=== PATIENT | female | born 1995 | race Caucasian/White ===

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

== ENCOUNTER 2017-04-07 21:00 | Emergency (ER) | payer BC, MEDICAID ==
[2017-04-07 21:12] VITALS: BP 127/80
--- NOTE | 2017-04-07 21:28 | EDM.PDOC ---
ED HPI GENERAL MEDICAL PROBLEM - General Chief Complaint: General Stated Complaint: Nausea and back pain, 7mos gestation Time Seen by Provider: 04/07/17 21:10 Source of Information: Reports: Patient - History of Present Illness INITIAL COMMENTS - FREE TEXT/NARRATIVE: This 21 yr female presents with low back pain and some headache and some nausea. She had been at the movie and stated pain has become worse. States she was able to eat today and is keeping fluids down. States she is feeling the baby move, she is 7 months . States she is taking her vitamins. States problems with sleep at night and sometimes will sleep in the recliner chair to help her get some rest. Her dad and boyfriend are with her. Onset: Today Location: Reports: Head, Back Improves with: Reports: Rest Worsens with: Reports: Eating Associated Symptoms: Reports: Headaches, Nausea/Vomiting Lower Back Pain Score (Numeric/FACES): 4 - Related Data Allergies Allergy/AdvReac Type Severity Reaction Status Date / Time adhesive Allergy Intermediate Rash Verified 04/07/17 21:26 coconut oil Allergy Mild Swelling Verified 04/07/17 21:26 kiwi Allergy Mild Swelling Verified 04/07/17 21:26 peanut Allergy Mild Swelling Verified 04/07/17 21:26 pineapple [Pineapple] Allergy Mild Swelling Verified 04/07/17 21:26 Sulfa (Sulfonamide Allergy Hives Verified 04/07/17 21:26 Antibiotics) Home Meds: Home Meds Loratadine/Pseudoephedrine [Claritin-D 24 Hour Tablet] 10 mg PO DAILY 09/21/16 [ History] Past Medical History HEENT History: Reports: Impaired Vision, Other (See Below) Other HEENT History: Wears glasses. Cardiovascular History: Reports: None Respiratory History: Reports: None Other Respiratory History: Takes nebs prn Gastrointestinal History: Reports: Other (See Below) Other Gastrointestinal History: Left lowe rabd. pain Other OB/BYN History: ovarian cyst Musculoskeletal History: Reports: Back Pain, Chronic Other Musculoskeletal History: knee pain Neurological History: Reports: Migraines Psychiatric History: Reports: Anxiety, Depression, Emotional Problems Oncologic (Cancer) History: Reports: None - Infectious Disease History Infectious Disease History: Reports: Chicken Pox - Past Surgical History Musculoskeletal Surgical History: Reports: Other (See Below) Social & Family History - Family History Family Medical History: Noncontributory - Tobacco Use Smoking Status *Q: Unknown Ever Smoked Years of Tobacco use: 2 Used Tobacco, but Quit: Yes Month Tobacco Last Used: october Second Hand Smoke Exposure: No - Caffeine Use Caffeine Use: Reports: Soda, Tea - Alcohol Use Days Per Week of Alcohol Use: 0 - Recreational Drug Use Recreational Drug Use: No ED ROS GENERAL - Review of Systems Review Of Systems: See Below Constitutional: Reports: No Symptoms HEENT: Reports: No Symptoms, Other (States allergies with season changes.) Respiratory: Reports: No Symptoms Cardiovascular: Reports: No Symptoms Endocrine: Reports: No Symptoms GI/Abdominal: Reports: No Symptoms : Reports: No Symptoms Musculoskeletal: Reports: Back Pain Skin: Reports: No Symptoms Neurological: Reports: No Symptoms Psychiatric: Reports: No Symptoms ED EXAM, GENERAL - Physical Exam Exam: See Below Exam Limited By: No Limitations General Appearance: Alert, WD/WN, No Apparent Distress Throat/Mouth: Normal Inspection, Normal Lips Head: Atraumatic, Normocephalic Neck: Supple, Non-Tender Respiratory/Chest: No Respiratory Distress, Lungs Clear Cardiovascular: Normal Peripheral Pulses, Regular Rate, Rhythm, Other (mild, non -pitting edema to ankles) GI/Abdominal: Non-Tender, Other (7 months ) Back Exam: Paraspinal Tenderness Extremities: Normal Inspection Neurological: Alert, Oriented Psychiatric: Normal Affect, Normal Mood Skin Exam: Warm, Dry, Normal Color Course - Vital Signs Last Recorded V/S: Last Vital Signs Temp 99.2 F 04/07/17 21:10 Pulse 105 H 04/07/17 21:10 Resp 20 04/07/17 21:10 BP 127/80 04/07/17 21:10 Pulse Ox 98 04/07/17 21:10 - Orders/Labs/Meds Labs: Laboratory Tests 04/07/17 04/07/17 04/07/17 Range/Units 21:03 21:20 21:20 WBC 12.8 H (4.0-11.0) K/uL RBC 3.71 L (3.80-5.80) M/uL Hgb 11.4 L (11.5-16.5) g/dL Hct 33.3 L (37.0-47.0) % MCV 90 (76-96) fL MCH 30.7 (27.0-32.0) pg MCHC 34.2 (31.0-35.0) g/dL RDW 14.1 (11.0-16.0) % Plt Count 164 (150-500) K/uL MPV 11.1 H (6.0-10.0) fL Neut % (Auto) 62.9 (45.0-70.0) % Lymph % (Auto) 24.9 (20.0-40.0) % [place] % (Auto) 9.9 (3.0-10.0) % Eos % (Auto) 2.1 (1.0-5.0) % Baso % (Auto) 0.2 (0.0-0.5) % Neut # (Auto) 8.02 H (2.00-7.50) K/uL Lymph # (Auto) 3.18 (1.50-4.00) K/uL [place] # (Auto) 1.26 H (0.20-0.80) K/uL Eos # (Auto) 0.27 (0.04-0.40) K/uL Baso # (Auto) 0.02 (0.02-0.10) K/uL Sodium 139 (136-145) mmol/L Potassium 3.8 (3.5-5.1) mmol/L Chloride 105 (98-107) mmol/L Carbon Dioxide 25.8 (21.0-32.0) mmol/L Anion Gap 12.0 (5.0-15.0) mmol/L BUN 10 (8-26) mg/dL Creatinine 0.52 L D (0.55-1.02) mg/dL Est Cr Clr Drug Dosing TNP Estimated GFR (MDRD) > 60 (>60) MLS/MIN BUN/Creatinine Ratio 19.2 (6-25) Glucose 106 H (74-100) mg/dL Calcium 8.8 (8.5-10.1) mg/dL Urine Color Yellow Urine Appearance Slightly cloudy (CLEAR) Urine pH 7.0 (5.0-8.0) Ur Specific [place] 1.020 (1.003-1.030) Urine Protein Negative (NEGATIVE) mg/dL Urine Glucose (UA) Negative (NEGATIVE) mg/dL Urine Ketones Negative (NEGATIVE) mg/dL Urine Occult Blood Negative (NEGATIVE) Urine Nitrite Negative (NEGATIVE) Urine Bilirubin Negative (NEGATIVE) Urine Urobilinogen 0.2 (0.2-1.0) E.U./dL Ur Leukocyte Esterase Negative (NEGATIVE) Urine RBC Not seen /HPF Urine WBC 5-10 H /HPF Ur Squamous Epith Cells Many /HPF Urine Bacteria Few /HPF - Re-Assessments/Exams Free Text/Narrative Re-Assessment/Exam: Lab for CBC, BMP and U/A completed. Leukocytosis noted and few bacteria to urine. Dale RN reports urine is cloudy and foul smelling. DXT=[id number]. Pt has appointment tomorrow with [facility]. States she wondered about taking Melatoin for sleep. States she hasn't been sleeping well. Recommend pt to check with OB /CUSTOMER SUCCESS INTERN for this. Recommend F/U in clinic if symptoms persist or worsen. 04/07/17 22:07 04/07/17 22:15 Rx for completion of Nitrofurantoin transmitted to [facility] per [employer]. 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 Reviewed with pt and her Dad. States understanding. Departure - Departure Time of Disposition: 22:15 Disposition: Home, Self-Care 01 Condition: Good Clinical Impression: UTI, Urinary tract infectious disease, UTI (urinary tract infection), Leucocytosis - Discharge Information Forms: ED Department Discharge Additional Instructions: Take Macrobid 100mg every 6hrs. Take meds given in ED, total of 6 caplets, and get prescription filled tomorrow.
== END 2017-04-07 22:14 | disposition home or self-care (01) ==
LOC: LB.ED 21:00
DX: O23.42 Unspecified infection of urinary tract in pregnancy, second trimester (principal); O99.113 Other diseases of the blood and blood-forming organs and certain disorders involving the immune mechanism complicating pregnancy, third trimester; D72.829 Elevated white blood cell count, unspecified; Z79.899 Other long term (current) drug therapy; Z88.8 Allergy status to other drugs, medicaments and biological substances; Z91.018 Allergy to other foods
CPT/HCPCS: 36415; 80048; 81001; 85025; 99283

== ENCOUNTER 2017-04-10 11:54 | Emergency (ER) | payer BC, MEDICAID ==
[2017-04-10 12:40] VITALS: BP 131/91
--- NOTE | 2017-04-10 13:44 | EDM.PDOC ---
ED HPI GENERAL MEDICAL PROBLEM - General Chief Complaint: [employer] Problem Stated Complaint: PAIN Time Seen by Provider: 04/10/17 12:40 Source of Information: Reports: Patient History Limitations: Reports: No Limitations - History of Present Illness INITIAL COMMENTS - FREE TEXT/NARRATIVE: Pt is a primigravida at 28 wks IUP approximately with SARAH BETH of 07/08/17.According to patient she was sleeping and she ahs a 31 pound pet dog, who basically jumped on her today morning. She claims that she has some abdominal cramping for a while and it resolved. Later on she went to meet her mother, and started to get abdominal cramps, she basically points all over the abdomen and which would come and go. She has not had vaginal bleeding or discharge since the injury. Has been feeling movement. She describes her pain and sharp cramps which last for few minutes. No nausea or vomiting. No dysuria or incontinence. No back pain. Abdominal Pain Score (Numeric/FACES): 8 - Related Data Allergies Allergy/AdvReac Type Severity Reaction Status Date / Time adhesive Allergy Intermediate Rash Verified 04/10/17 12:40 coconut oil Allergy Mild Swelling Verified 04/10/17 12:40 kiwi Allergy Mild Swelling Verified 04/10/17 12:40 peanut Allergy Mild Swelling Verified 04/10/17 12:40 pineapple [Pineapple] Allergy Mild Swelling Verified 04/10/17 12:40 Sulfa (Sulfonamide Allergy Hives Verified 04/10/17 12:40 Antibiotics) Home Meds: Home Meds Loratadine/Pseudoephedrine [Claritin-D 24 Hour Tablet] 10 mg PO DAILY 09/21/16 [ History] Past Medical History HEENT History: Reports: Impaired Vision, Other (See Below) Other HEENT History: Wears glasses. Cardiovascular History: Reports: None Respiratory History: Reports: None Other Respiratory History: Takes nebs prn Gastrointestinal History: Reports: Other (See Below) Other Gastrointestinal History: Left lowe rabd. pain Genitourinary History: Reports: UTI, Recurrent [employer] SECR[employer]ARY History: Reports: Other OB/BYN History: ovarian cyst Musculoskeletal History: Reports: Back Pain, Chronic Other Musculoskeletal History: knee pain Neurological History: Reports: Migraines Psychiatric History: Reports: Anxiety, Depression, Emotional Problems Oncologic (Cancer) History: Reports: None - Infectious Disease History Infectious Disease History: Reports: Chicken Pox - Past Surgical History Female Surgical History: Reports: None Musculoskeletal Surgical History: Reports: Other (See Below) Social & Family History - Family History Family Medical History: Noncontributory - Tobacco Use Smoking Status *Q: Unknown Ever Smoked Years of Tobacco use: 2 Used Tobacco, but Quit: Yes Month Tobacco Last Used: october Second Hand Smoke Exposure: No - Caffeine Use Caffeine Use: Reports: Soda, Tea - Alcohol Use Days Per Week of Alcohol Use: 0 - Recreational Drug Use Recreational Drug Use: No ED ROS GENERAL - Review of Systems Review Of Systems: See Below Constitutional: Denies: Fever, Chills, Fatigue, Night Sweats HEENT: Denies: Glasses, Hearing Loss, Throat Pain, Throat Swelling Respiratory: Denies: Shortness of Breath, Wheezing, Pleuritic Chest Pain, Cough , Sputum Cardiovascular: Denies: Chest Pain, Blood Pressure Problem GI/Abdominal: Reports: Abdominal Pain, Other. Denies: Nausea, Vomiting : Reports: Other (pelvic exam not done as pt is not having vaginal bleeding.) . Denies: Dysuria, Frequency, Urgency, Urinary Retention Musculoskeletal: Denies: Joint Pain, Joint Swelling Skin: Denies: Pruritis, Rash Neurological: Reports: Confusion, Dizziness ED EXAM, GENERAL - Physical Exam Exam: See Below Exam Limited By: No Limitations General Appearance: Alert, WD/WN, No Apparent Distress Ears: Normal External Exam, Normal Canal, Hearing Grossly Normal, Normal TMs Ear Exam: Bilateral Ear: Auricle Normal, Canal Normal, TM normal Nose: Normal Inspection, Normal Mucosa, No Blood Throat/Mouth: Normal Inspection, Normal Lips, Normal Teeth, Normal Gums, Normal Oropharynx, Normal Voice, No Airway Compromise Head: Atraumatic, Normocephalic Neck: Normal Inspection, Supple, Non-Tender, Full Range of Motion Respiratory/Chest: No Respiratory Distress, Lungs Clear, Normal Breath Sounds, No Accessory Muscle Use, Chest Non-Tender Cardiovascular: Normal Peripheral Pulses, Regular Rate, Rhythm, No Edema, No Gallop, No JVD, No Murmur, No Rub GI/Abdominal: Normal Bowel Sounds, Soft, Non-Tender, No Organomegaly, No Distention, No Abnormal Bruit, No Mass (Female) Exam: Other (Gravid uterus, Non tender to palpation and soft. heart tone sin 140-160 and reactive with good variability. No uterine contractions seen on Sylvia monitor). No: Uterine Tenderness, Vaginal Discharge Course - Vital Signs Text/Narrative:: Pt was placed on monitoring with tocometer. She has got heart tones 140-160 , with good variability on the strip. Also she has been c/o abdominal cramping, but appears very comfortable through them and last from 25 seconds to 45 seconds and are irregular. I did try to feel the contraction on the abdomen and dont feel one. Also her uterus is not hard and tender to abdominal palpations. Pt was orally hydrated. CBC is normal and her UA is WNL. I did call Dr. Roy , Pt's OBGYN and discuss finding with her. Dr. Roy does agree with oral hydration and rest. Advised to go down to [facility], if she has severe cramping pain which last for more than 2 minutes at a time and more frequent, or if she has vaginal bleeding, or nausea and vomiting, of hardening of her uterus. Other zabala rest and hydration and followup with Dr. Roy with the next scheduled appointment. Last Recorded V/S: Last Vital Signs Temp 98.4 F 04/10/17 12:15 Pulse 106 H 04/10/17 12:15 Resp 20 04/10/17 12:15 BP 131/91 H 04/10/17 12:15 Pulse Ox 100 04/10/17 12:15 - Orders/Labs/Meds Labs: Laboratory Tests 04/10/17 04/10/17 Range/Units 13:07 13:07 WBC 12.1 H (4.0-11.0) K/uL RBC 3.86 (3.80-5.80) M/uL Hgb 11.8 (11.5-16.5) g/dL Hct 34.8 L (37.0-47.0) % MCV 90 (76-96) fL MCH 30.6 (27.0-32.0) pg MCHC 33.9 (31.0-35.0) g/dL RDW 13.8 (11.0-16.0) % Plt Count 175 (150-500) K/uL MPV 11.4 H (6.0-10.0) fL Neut % (Auto) 74.4 H (45.0-70.0) % Lymph % (Auto) 17.0 L (20.0-40.0) % [place] % (Auto) 7.3 (3.0-10.0) % Eos % (Auto) 1.1 (1.0-5.0) % Baso % (Auto) 0.2 (0.0-0.5) % Neut # (Auto) 8.96 H (2.00-7.50) K/uL Lymph # (Auto) 2.05 (1.50-4.00) K/uL [place] # (Auto) 0.88 H (0.20-0.80) K/uL Eos # (Auto) 0.13 (0.04-0.40) K/uL Baso # (Auto) 0.03 (0.02-0.10) K/uL Urine Color Yellow Urine Appearance Clear (CLEAR) Urine pH 7.0 (5.0-8.0) Ur Specific [place] 1.015 (1.003-1.030) Urine Protein Negative (NEGATIVE) mg/dL Urine Glucose (UA) Negative (NEGATIVE) mg/dL Urine Ketones Negative (NEGATIVE) mg/dL Urine Occult Blood Negative (NEGATIVE) Urine Nitrite Negative (NEGATIVE) Urine Bilirubin Negative (NEGATIVE) Urine Urobilinogen 0.2 (0.2-1.0) E.U./dL Ur Leukocyte Esterase Negative (NEGATIVE) Urine RBC Not seen /HPF Urine WBC Not seen /HPF Ur Squamous Epith Cells Few /HPF Urine Bacteria Rare /HPF Departure - Departure Time of Disposition: 14:15 Disposition: Home, Self-Care 01 Condition: Good Clinical Impression: Abdominal pain affecting - Discharge Information Instructions: [place] Contractions, Abdominal Pain During Referrals: PCP,Unknown [Primary Care Provider] - Forms: ED Department Discharge Additional Instructions: Get rest and drink plenty of fluid. The child education classes should be sometime in May, if you don't receive a call in the next week, call and ask about them. - Problem List & Annotations (1) Abdominal pain affecting SNOMED Code(s): 927911388 Code(s): O26.899 - OTH RELATED CONDITIONS, UNSPECIFIED TRIMESTER; R10.9 - UNSPECIFIED ABDOMINAL PAIN Status: Acute - Problem List Review Problem List Initiated/Reviewed/Updated: Yes - Assessment/Plan Assessment:: Primigravida Early 3rd trimester, with mild abdominal trauma Plan: I did call Dr. Roy , Pt's OBGYN and discuss finding with her. Dr. Roy does agree with oral hydration and rest. Advised to go down to [facility], if she has severe cramping pain which last for more than 2 minutes at a time and more frequent, or if she has vaginal bleeding, or nausea and vomiting, of hardening of her uterus. Other zabala rest and hydration and followup with Dr. Roy with the next scheduled appointment.
== END 2017-04-10 14:15 | disposition home or self-care (01) ==
LOC: LB.ED 11:54
DX: O26.893 Other specified pregnancy related conditions, third trimester (principal); R10.9 Unspecified abdominal pain; O99.355 Diseases of the nervous system complicating the puerperium; G43.909 Migraine, unspecified, not intractable, without status migrainosus; Z3A.28 28 weeks gestation of pregnancy; Z91.018 Allergy to other foods; Z88.2 Allergy status to sulfonamides; Z91.010 Allergy to peanuts; Z91.048 Other nonmedicinal substance allergy status; Z79.899 Other long term (current) drug therapy
CPT/HCPCS: 36415; 81001; 85025; 99283

== ENCOUNTER 2017-05-03 13:45 | Emergency (ER) | payer BC, MEDICAID ==
[2017-05-03 14:08] VITALS: BP 131/79
[2017-05-03] MEDS ORDERED: Ondansetron 4 MG Tab.DIS PO ONE (14:09)
[2017-05-03] MEDS ORDERED: Sodium Chloride 0.9% 1,000 ML IV SCH (14:15)
[2017-05-03] MEDS ORDERED: Amoxicillin 500 MG Cap ONE (15:00)
[2017-05-03] MEDS ORDERED: Ondansetron 4 MG Tab.DIS ONE (15:00)
--- NOTE | 2017-05-03 15:44 | EDM.PDOC ---
ED HPI GENERAL MEDICAL PROBLEM - General Chief Complaint: General Stated Complaint: vomiting Time Seen by Provider: 05/03/17 13:55 Source of Information: Reports: Patient, Family History Limitations: Reports: No Limitations - History of Present Illness INITIAL COMMENTS - FREE TEXT/NARRATIVE: Patient is a 21 year old woman who is a female at 30 weeks gestational age who developed a URI with a lot of sinus pain and drainage which has led to a lot of nausea and vomiting today. No other pain, fever or chills. No urinary symptoms and no contractions or leakage of fluid from the vagina. Baby is active and doing well. Onset: Gradual Onset Date: 05/02/17 Duration: Day(s): (1) Location: Reports: Generalized Quality: Reports: Same as Previous Episode (Has had hyperemesis gravidarum earlier in her .) Severity: Mild Improves with: Reports: None Worsens with: Reports: None Context: Reports: Other (30 weeks ) Associated Symptoms: Reports: Nausea/Vomiting jaw and neck Pain Score (Numeric/FACES): 8 - Related Data Allergies Allergy/AdvReac Type Severity Reaction Status Date / Time adhesive Allergy Intermediate Rash Verified 04/10/17 12:40 coconut oil Allergy Mild Swelling Verified 04/10/17 12:40 kiwi Allergy Mild Swelling Verified 04/10/17 12:40 peanut Allergy Mild Swelling Verified 04/10/17 12:40 pineapple [Pineapple] Allergy Mild Swelling Verified 04/10/17 12:40 Sulfa (Sulfonamide Allergy Hives Verified 04/10/17 12:40 Antibiotics) Home Meds: Home Meds Loratadine/Pseudoephedrine [Claritin-D 24 Hour Tablet] 10 mg PO DAILY 09/21/16 [ History] Past Medical History HEENT History: Reports: Impaired Vision, Other (See Below) Other HEENT History: Wears glasses. Cardiovascular History: Reports: None Respiratory History: Reports: None Other Respiratory History: Takes nebs prn Gastrointestinal History: Reports: Other (See Below) Other Gastrointestinal History: Left lowe rabd. 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: ovarian cyst Musculoskeletal History: Reports: Back Pain, Chronic Other Musculoskeletal History: knee pain Neurological History: Reports: Migraines Psychiatric History: Reports: Anxiety, Depression, Emotional Problems Oncologic (Cancer) History: Reports: None - Infectious Disease History Infectious Disease History: Reports: Chicken Pox - Past Surgical History Female Surgical History: Reports: None Musculoskeletal Surgical History: Reports: Other (See Below) Social & Family History - Family History Family Medical History: Noncontributory - Tobacco Use Smoking Status *Q: Unknown Ever Smoked Years of Tobacco use: 2 Used Tobacco, but Quit: Yes Month Tobacco Last Used: october Second Hand Smoke Exposure: No - Caffeine Use Caffeine Use: Reports: Soda, Tea - Alcohol Use Days Per Week of Alcohol Use: 0 - Recreational Drug Use Recreational Drug Use: No ED ROS GENERAL - Review of Systems Review Of Systems: See Below Constitutional: Reports: Decreased Appetite HEENT: Reports: Sinus Problem Respiratory: Reports: No Symptoms Cardiovascular: Reports: No Symptoms Endocrine: Reports: No Symptoms GI/Abdominal: Reports: Decreased Appetite, Nausea, Vomiting : Reports: No Symptoms Musculoskeletal: Reports: No Symptoms Skin: Reports: No Symptoms Neurological: Reports: No Symptoms Psychiatric: Reports: No Symptoms Hematologic/Lymphatic: Reports: Other Immunologic: Reports: No Symptoms ED EXAM, GENERAL - Physical Exam Exam: See Below Exam Limited By: No Limitations General Appearance: Alert, WD/WN, No Apparent Distress Eye Exam: Bilateral Eye: Corneal Abrasion, Normal Fundi, Normal Inspection Ears: Normal External Exam, Normal Canal, Hearing Grossly Normal, Normal TMs Ear Exam: Bilateral Ear: Auricle Normal, Canal Normal, TM normal Nose: Nasal Drainage Throat/Mouth: Normal Inspection, Normal Lips, Normal Teeth, Normal Gums, Normal Oropharynx, Normal Voice, No Airway Compromise Head: Sinus Tenderness Neck: Normal Inspection, Supple, Non-Tender, Full Range of Motion Respiratory/Chest: No Respiratory Distress, Lungs Clear, Normal Breath Sounds, No Accessory Muscle Use, Chest Non-Tender Cardiovascular: Normal Peripheral Pulses, Regular Rate, Rhythm, No Edema, No Gallop, No JVD, No Murmur, No Rub Peripheral Pulses: 4+: Posterior Tibial (L), Posterior Tibial (R), Dorsalis Pedis (L), Dorsalis Pedis (R) GI/Abdominal: Other (Normal, nontender gravid abdomen at 30 weeks. Heart Tones at 142.) Back Exam: Normal Inspection, Full Range of Motion, NT Extremities: Normal Inspection, Normal Range of Motion, Non-Tender, Normal Capillary Refill, No Pedal Edema Neurological: Alert, Oriented, CN II-XII Intact, Normal Cognition, Normal Gait, Normal Reflexes, No Motor/Sensory Deficits Psychiatric: Normal Affect, Normal Mood Course - Vital Signs Text/Narrative:: Unremarkable ED course. She was given 4 mg of oral Zofran which quickly took away her nausea and vomiting. She was also given one liter of 0.9 normal saline and she had a great response to that. She has sinusitis causing her elevation in the WBC along with the and vomiting. She will be given Amoxicillin 500 mg po tid x 10 days and Zofran 0.4 mg po q 8 hours prn nausea. She will see her OB doctor this week and will follow closely with her. Last Recorded V/S: Last Vital Signs Temp 37.3 C 05/03/17 13:53 Pulse 110 H 05/03/17 13:53 Resp BP 131/79 05/03/17 13:53 Pulse Ox 99 05/03/17 13:53 - Orders/Labs/Meds Orders: Active Orders 24 hr Category Date Time Status Sodium Chloride 0.9% [Normal Saline] 1,000 ml Med 05/03/17 14:15 Active IV ASDIRECTED Medication Orders Sodium Chloride (Normal Saline) 1,000 mls @ 1,000 mls/hr IV ASDIRECTED JUDE Last Admin: 05/03/17 14:20 Dose: 1,000 mls/hr Labs: Laboratory Tests 05/03/17 05/03/17 05/03/17 Range/Units 14:15 14:15 14:26 WBC 15.7 H D (4.0-11.0) K/uL RBC 3.76 L (3.80-5.80) M/uL Hgb 11.5 (11.5-16.5) g/dL Hct 33.4 L (37.0-47.0) % MCV 89 (76-96) fL MCH 30.6 (27.0-32.0) pg MCHC 34.4 (31.0-35.0) g/dL RDW 13.3 (11.0-16.0) % Plt Count 156 (150-500) K/uL MPV 11.5 H (6.0-10.0) fL Neut % (Auto) 84.7 H (45.0-70.0) % Lymph % (Auto) 7.1 L (20.0-40.0) % Schley % (Auto) 6.4 (3.0-10.0) % Eos % (Auto) 1.6 (1.0-5.0) % Baso % (Auto) 0.2 (0.0-0.5) % Neut # (Auto) 13.31 H (2.00-7.50) K/uL Lymph # (Auto) 1.11 L (1.50-4.00) K/uL Schley # (Auto) 1.00 H (0.20-0.80) K/uL Eos # (Auto) 0.25 (0.04-0.40) K/uL Baso # (Auto) 0.03 (0.02-0.10) K/uL Sodium 137 (136-145) mmol/L Potassium 3.6 (3.5-5.1) mmol/L Chloride 104 (98-107) mmol/L Carbon Dioxide 22.4 (21.0-32.0) mmol/L Anion Gap 14.2 (5.0-15.0) mmol/L BUN 5 L D (8-26) mg/dL Creatinine 0.48 L (0.55-1.02) mg/dL Est Cr Clr Drug Dosing TNP Estimated GFR (MDRD) > 60 (>60) MLS/MIN BUN/Creatinine Ratio 10.4 (6-25) Glucose 93 (74-100) mg/dL Calcium 8.7 (8.5-10.1) mg/dL Total Bilirubin 1.4 H D (0.0-1.0) mg/dL AST 18 (15-37) U/L ALT 15 (12-78) U/L Alkaline Phosphatase 85 (46-116) U/L Total Protein 6.6 (6.4-8.2) g/dL Albumin 2.8 L (3.4-5.0) g/dL Globulin 3.8 (2.2-4.2) g/dL Albumin/Globulin Ratio 0.7 L (0.8-2.0) Urine Color Yellow Urine Appearance Clear (CLEAR) Urine pH 8.5 H (5.0-8.0) Ur Specific [place] 1.015 (1.003-1.030) Urine Protein Negative (NEGATIVE) mg/dL Urine Glucose (UA) Negative (NEGATIVE) mg/dL Urine Ketones 40 H (NEGATIVE) mg/dL Urine Occult Blood Negative (NEGATIVE) Urine Nitrite Negative (NEGATIVE) Urine Bilirubin Negative (NEGATIVE) Urine Urobilinogen 0.2 (0.2-1.0) E.U./dL Ur Leukocyte Esterase Negative (NEGATIVE) Urine RBC Not seen /HPF Urine WBC 0-5 H /HPF Ur Squamous Epith Cells Moderate /HPF Amorphous Sediment Moderate /HPF Urine Bacteria Few /HPF Meds: Medications Generic Name Dose Route Start Last Admin Trade Name Freq PRN Reason Stop Dose Admin Sodium Chloride 1,000 mls @ 1,000 mls/hr 05/03/17 14:15 05/03/17 14:20 Normal Saline IV 1,000 mls/hr ASDIRECTED JUDE Administration Discontinued Medications Generic Name Dose Route Start Last Admin Trade Name Freq PRN Reason Stop Dose Admin Ondansetron HCl 4 mg 05/03/17 14:09 05/03/17 14:00 Zofran Odt PO 05/03/17 14:10 4 mg ONETIME ONE Administration Departure - Departure Time of Disposition: 15:51 Disposition: Admitted As Inpatient 66 Condition: Good Clinical Impression: Sinusitis, Hyperemesis arising during - Discharge Information Instructions: Sinusitis, Adult, Dehydration, Adult, [id number] Referrals: PCP,None [Primary Care Provider] - Forms: ED Department Discharge Additional Instructions: Take the antibiotic until the mediation is completely gone and use the ondansetron as needed for nausea. To stay hydrated; take a sip of water or gatorade every 15 minutes while awake. If you have any questions during your you need to call OB in [place], if you need further assistance you can call the hospital. Make sure you are making it to your OB appointments. - My Orders Last 24 Hours: My Active Orders 05/03/17 14:15 Sodium Chloride 0.9% [Normal Saline] 1,000 ml IV ASDIRECTED - Assessment/Plan Last 24 Hours: My Active Orders 05/03/17 14:15 Sodium Chloride 0.9% [Normal Saline] 1,000 ml IV ASDIRECTED
== END 2017-05-03 15:31 | disposition critical access hospital (66) ==
LOC: LB.ED 13:45
DX: O21.0 Mild hyperemesis gravidarum (principal); O99.513 Diseases of the respiratory system complicating pregnancy, third trimester; J32.9 Chronic sinusitis, unspecified; O99.353 Diseases of the nervous system complicating pregnancy, third trimester; G43.909 Migraine, unspecified, not intractable, without status migrainosus; O99.343 Other mental disorders complicating pregnancy, third trimester; F41.9 Anxiety disorder, unspecified; F32.9 Major depressive disorder, single episode, unspecified; Z91.018 Allergy to other foods; Z91.09 Other allergy status, other than to drugs and biological substances; Z91.010 Allergy to peanuts; Z88.2 Allergy status to sulfonamides; Z87.440 Personal history of urinary (tract) infections; Z3A.30 30 weeks gestation of pregnancy
CPT/HCPCS: 36415; 80053; 81001; 85025; 96360; 99284; A9270; J7040

== ENCOUNTER 2017-05-26 15:26 | Emergency (ER) | payer BC, MEDICAID ==
--- NOTE | 2017-05-26 15:56 | EDM.PDOC ---
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 She claims that she has bee having sore throat since yesterday. hurt to swallow. No fever or chills. No runny nose or cold symptoms. No cough. Claims she feels weak. She can feel the baby move. Complains of pain in her lower abdomen on and off. She claims that her legs are swollen and her blood pressure is up. No confusion. , no epigastric pain. no nausea or vomiting. no tremors or headache. Onset Date: 05/25/17 Severity: Mild Throat Pain Score (Numeric/FACES): 9 - Related Data Allergies Allergy/AdvReac Type Severity Reaction Status Date / Time adhesive Allergy Intermediate Rash Verified 04/10/17 12:40 coconut oil Allergy Mild Swelling Verified 04/10/17 12:40 kiwi Allergy Mild Swelling Verified 04/10/17 12:40 peanut Allergy Mild Swelling Verified 04/10/17 12:40 pineapple [Pineapple] Allergy Mild Swelling Verified 04/10/17 12:40 Sulfa (Sulfonamide Allergy Hives Verified 04/10/17 12:40 Antibiotics) Home Meds: Home Meds Loratadine/Pseudoephedrine [Claritin-D 24 Hour Tablet] 10 mg PO DAILY 09/21/16 [ History] Past Medical History HEENT History: Reports: Impaired Vision, Other (See Below) Other HEENT History: Wears glasses. Cardiovascular History: Reports: None Respiratory History: Reports: None Other Respiratory History: Takes nebs prn Gastrointestinal History: Reports: Other (See Below) Other Gastrointestinal History: Left lowe rabd. 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 OB/BYN History: ovarian cyst Musculoskeletal History: Reports: Back Pain, Chronic Other Musculoskeletal History: knee pain Neurological History: Reports: Migraines Psychiatric History: Reports: Anxiety, Depression, Emotional Problems Oncologic (Cancer) History: Reports: None - Infectious Disease History Infectious Disease History: Reports: Chicken Pox - Past Surgical History Female Surgical History: Reports: None Musculoskeletal Surgical History: Reports: Other (See Below) Social & Family History - Family History Family Medical History: Noncontributory - Tobacco Use Smoking Status *Q: Unknown Ever Smoked Years of Tobacco use: 2 Used Tobacco, but Quit: Yes Month Tobacco Last Used: october Second Hand Smoke Exposure: No - Caffeine Use Caffeine Use: Reports: Soda, Tea - Alcohol Use Days Per Week of Alcohol Use: 0 - Recreational Drug Use Recreational Drug Use: No ED ROS GENERAL - Review of Systems Review Of Systems: See Below Constitutional: Denies: Fever, Chills, Night Sweats, Diaphoresis HEENT: Reports: Throat Pain. Denies: Rhinitis, Sinus Problem, Throat Swelling Respiratory: Denies: Cough, Sputum Cardiovascular: Denies: Chest Pain, Lightheadedness GI/Abdominal: Reports: Abdominal Pain, Flatus. Denies: Constipation, Diarrhea, Nausea, Vomiting : Denies: Dysuria, Flank Pain, Frequency Musculoskeletal: Denies: Joint Pain, Joint Swelling Skin: Denies: Bruising, Pruritis, Rash Neurological: Denies: Confusion, Dizziness, Headache, Numbness, Tingling, Tremors ED EXAM, GENERAL - Physical Exam Exam: See Below Exam Limited By: No Limitations General Appearance: Alert, WD/WN, No Apparent Distress Eye Exam: Bilateral Eye: EOMI, Proptosis Ears: Normal External Exam, Normal Canal, Hearing Grossly Normal, Normal TMs Ear Exam: Bilateral Ear: Auricle Normal, Canal Normal, TM normal Nose: Normal Inspection, Normal Mucosa, No Blood Throat/Mouth: Normal Inspection, Normal Lips, Normal Teeth, Normal Gums, Normal Oropharynx, Normal Voice, No Airway Compromise, Other (I do not see any congestion or erythema of the posterior pharynx) Head: Atraumatic, Normocephalic Neck: Normal Inspection, Supple, Non-Tender, Full Range of Motion Respiratory/Chest: No Respiratory Distress, Lungs Clear, Normal Breath Sounds, No Accessory Muscle Use, Chest Non-Tender Cardiovascular: Normal Peripheral Pulses, Regular Rate, Rhythm, No Edema, No Gallop, No JVD, No Murmur, No Rub GI/Abdominal: Normal Bowel Sounds, Soft, Non-Tender, No Organomegaly, No Distention, No Mass, Pelvis Stable, Other (Gravid uterus palpatble. Non tender. FHT in 140s and reactive , heard in the rigth lower quadrant.) Course - Vital Signs Text/Narrative:: Pt appears well hydrated, her tongue is moist. I do not see any swelling in her ankle or legs today. heart tones are reactive and reassuring. Her strep test is negative. Probably has viral pharyngitis. Advised salt water gargles 2-3 times. CBC, CMP and UA appear normal. Reassured that her initial Blood pressure was 146 /76mmhg. We did repeat the Blood pressure was 125/72mmhg after resting. Pt reassured that her blood pressure is stable and all her lab work appears normal. Advised to followup with Dr. Roy with her appointment next thursday. If she develops severe headache, nausea , vomiting, intractable abdominal pain, tremors should return to emergency room HEATH. Advised to monitor movements. Last Recorded V/S: Last Vital Signs Temp 98.3 F 05/26/17 15:46 Pulse 100 05/26/17 16:40 Resp 16 05/26/17 15:46 BP 125/70 05/26/17 16:40 Pulse Ox 98 05/26/17 16:40 - Orders/Labs/Meds Orders: Active Orders 24 hr Category Date Time Status CULTURE STREP A CONFIRMATION [RM] Stat Lab 05/26/17 16:00 Results STREP SCRN A RAPID W CULT CONF [RM] Stat Lab 05/26/17 15:51 Uncollected Labs: Laboratory Tests 05/26/17 05/26/17 05/26/17 Range/Units 14:00 16:00 16:00 WBC 12.3 H D (4.0-11.0) K/uL RBC 3.88 (3.80-5.80) M/uL Hgb 11.4 L (11.5-16.5) g/dL Hct 33.3 L (37.0-47.0) % MCV 86 (76-96) fL MCH 29.4 (27.0-32.0) pg MCHC 34.2 (31.0-35.0) g/dL RDW 13.0 (11.0-16.0) % Plt Count 180 (150-500) K/uL MPV 11.5 H (6.0-10.0) fL Neut % (Auto) 70.3 H (45.0-70.0) % Lymph % (Auto) 17.6 L (20.0-40.0) % [place] % (Auto) 8.6 (3.0-10.0) % Eos % (Auto) 3.2 (1.0-5.0) % Baso % (Auto) 0.3 (0.0-0.5) % Neut # (Auto) 8.64 H (2.00-7.50) K/uL Lymph # (Auto) 2.17 (1.50-4.00) K/uL [place] # (Auto) 1.06 H (0.20-0.80) K/uL Eos # (Auto) 0.40 (0.04-0.40) K/uL Baso # (Auto) 0.04 (0.02-0.10) K/uL Sodium 139 (136-145) mmol/L Potassium 3.7 (3.5-5.1) mmol/L Chloride 106 (98-107) mmol/L Carbon Dioxide 22.0 (21.0-32.0) mmol/L Anion Gap 14.7 (5.0-15.0) mmol/L BUN 7 L D (8-26) mg/dL Creatinine 0.57 (0.55-1.02) mg/dL Est Cr Clr Drug Dosing 148.61 mL/min Estimated GFR (MDRD) > 60 (>60) MLS/MIN BUN/Creatinine Ratio 12.3 (6-25) Glucose 94 (74-100) mg/dL Calcium 8.7 (8.5-10.1) mg/dL Total Bilirubin 0.6 D (0.0-1.0) mg/dL AST 14 L (15-37) U/L ALT 12 (12-78) U/L Alkaline Phosphatase 109 (46-116) U/L Total Protein 6.3 L (6.4-8.2) g/dL Albumin 2.6 L (3.4-5.0) g/dL Globulin 3.7 (2.2-4.2) g/dL Albumin/Globulin Ratio 0.7 L (0.8-2.0) Urine Color Yellow Urine Appearance Clear (CLEAR) Urine pH 7.5 (5.0-8.0) Ur Specific [place] 1.020 (1.003-1.030) Urine Protein Negative (NEGATIVE) mg/dL Urine Glucose (UA) Negative (NEGATIVE) mg/dL Urine Ketones 15 H (NEGATIVE) mg/dL Urine Occult Blood Negative (NEGATIVE) Urine Nitrite Negative (NEGATIVE) Urine Bilirubin Negative (NEGATIVE) Urine Urobilinogen 1.0 (0.2-1.0) E.U./dL Ur Leukocyte Esterase Small H (NEGATIVE) Urine RBC Not seen /HPF Urine WBC 0-5 H /HPF Ur Squamous Epith Cells Moderate /HPF Urine Bacteria Rare /HPF Departure - Departure Time of Disposition: 16:45 Disposition: Home, Self-Care 01 Condition: Fair Clinical Impression: Viral pharyngitis, Abdominal pain in - Discharge Information Referrals: PCP,None [Primary Care Provider] - Forms: ED Department Discharge Additional Instructions: Pt appears well hydrated, her tongue is moist. I do not see any swelling in her ankle or legs today. heart tones are reactive and reassuring. Her strep test is negative. Probably has viral pharyngitis. Advised salt water gargles 2-3 times. CBC, CMP and UA appear normal. Reassured that her initial Blood pressure was 146 /76mmhg. We did repeat the Blood pressure was 125/72mmhg after resting. Pt reassured that her blood pressure is stable and all her lab work appears normal. Advised to followup with Dr. Roy with her appointment next thursday. If she develops severe headache, nausea , vomiting, intractable abdominal pain, tremors should return to emergency room HEATH. Advised to monitor movements. - Problem List & Annotations (1) Viral pharyngitis SNOMED Code(s): 1592860 Code(s): J02.9 - ACUTE PHARYNGITIS, UNSPECIFIED Status: Acute Current Visit: Yes (2) Abdominal pain in SNOMED Code(s): 911706484 Code(s): O26.899 - OTH RELATED CONDITIONS, UNSPECIFIED TRIMESTER; R10.9 - UNSPECIFIED ABDOMINAL PAIN Status: Acute Current Visit: Yes - Problem List Review Problem List Initiated/Reviewed/Updated: Yes - My Orders Last 24 Hours: My Active Orders 05/26/17 15:51 STREP SCRN A RAPID W CULT CONF [RM] Stat 05/26/17 16:00 CULTURE STREP A CONFIRMATION [RM] Stat - Assessment/Plan Last 24 Hours: My Active Orders 05/26/17 15:51 STREP SCRN A RAPID W CULT CONF [RM] Stat 05/26/17 16:00 CULTURE STREP A CONFIRMATION [RM] Stat Assessment:: Viral Pharyngitis Abdominal pain in Plan: Pt appears well hydrated, her tongue is moist. I do not see any swelling in her ankle or legs today. heart tones are reactive and reassuring. Her strep test is negative. CBC, CMP and UA appear normal. Reassured that her initial Blood pressure was 146 /76mmhg. We did repeat the Blood pressure after 20 minutes resting. Pt reassured that her blood pressure is stable and all her lab work appears normal. Advised to followup with Dr. Roy with her appointment next thursday. If she develops severe headache, nausea , vomiting, intractable abdominal pain, tremors should return to emergency room HEATH. Advised to monitor movements.
[2017-05-26 16:41] VITALS: BP 125/70
== END 2017-05-26 16:45 | disposition home or self-care (01) ==
LOC: LB.ED 15:26
DX: O99.89 Other specified diseases and conditions complicating pregnancy, childbirth and the puerperium (principal); J02.9 Acute pharyngitis, unspecified; R10.31 Right lower quadrant pain; Z88.2 Allergy status to sulfonamides; Z88.8 Allergy status to other drugs, medicaments and biological substances; Z91.018 Allergy to other foods
CPT/HCPCS: 36415; 80053; 81001; 85025; 87081; 87430; 99283; 99284

== ENCOUNTER 2017-07-04 10:08 | Emergency (ER) | payer BC, MEDICAID ==
[2017-07-04] MEDS ORDERED: Ondansetron 4 MG Tab.DIS PO ONE ×2 (10:23→10:27)
[2017-07-04] MEDS ORDERED: Ketorolac 60 MG/2 ML SDV IM ONE (10:28)
[2017-07-04] MEDS ORDERED: Ondansetron 4 MG Tab.DIS ONE ×2 (10:29→10:45)
[2017-07-04] MEDS ORDERED: Ketorolac 60 MG/2 ML SDV ONE (10:34)
[2017-07-04 10:50] VITALS: BP 125/67
--- NOTE | 2017-07-04 15:39 | ER ---
HISTORY OF PRESENT ILLNESS: A 21-year-old girl here with I believe her father with complaints of lower abdominal pain that has been ongoing for the last couple of days. She also feels nauseated. She has not been vomiting. She has not had any recent falls or injuries. The patient did have a vaginal delivery on 06/26/2017. She did have a lot of abdominal pain throughout her as well, but she states this feels a little different. She has not had any vaginal bleeding the last few days. She is on over-the- counter iron supplement because her hemoglobin was a little low. The patient states she feels a little dizzy at times, but not significantly. OBJECTIVE: GENERAL APPEARANCE: The patient is awake and alert. VITAL SIGNS: Reviewed. She is afebrile. Blood pressure 125/67. LUNGS: Clear. There is no CVA tenderness with percussion. ABDOMEN: Soft. There is mild discomfort in the lower abdomen midline area over the bladder uterus area. There is no guarding with palpation. Bowel sounds are present and active. SKIN: Warm and dry. LABORATORY DATA: Labs today include a CBC, which has a normal white count, hemoglobin of 10.3. CMP is unremarkable and UA is normal. The patient was given Zofran 4 mg sublingual and Toradol 60 mg IM. These medications resolved her symptoms, while waiting for the lab results. DIAGNOSIS: Lower abdominal pain, post delivery without any current bleeding. TREATMENT PLAN: I advised patient to continue with activity as tolerated. Ibuprofen or Motrin should be used as needed for discomfort and she is to increase her liquid intake. Followup should be with her primary care provider next week as needed. NIRALI/MODPrecious /[id number]
== END 2017-07-04 11:25 | disposition home or self-care (01) ==
LOC: LB.ED 10:08
DX: O90.89 Other complications of the puerperium, not elsewhere classified (principal); R10.30 Lower abdominal pain, unspecified
CPT/HCPCS: 36415; 80053; 81001; 85025; 96372; 99284; A9270; J1885

== ENCOUNTER 2017-12-15 14:46 | Emergency (ER) | payer BC, MEDICAID ==
[2017-12-15] MEDS ORDERED: HYDROmorphone 2 MG/ML Syringe SUBCUT ONE (15:00)
[2017-12-15] MEDS ORDERED: HYDROmorphone 4 MG/ML Syringe ONE (15:02)
[2017-12-15] MEDS ORDERED: Enoxaparin 60 MG/0.6 ML Syringe ONE ×2 (15:10→16:18)
[2017-12-15 15:25] VITALS: BP 140/70
[2017-12-15] MEDS ORDERED: Enoxaparin 60 MG/0.6 ML Syringe SUBCUT ONE (16:21)
--- NOTE | 2017-12-15 20:32 | ER ---
DATE OF SERVICE: 12/15/2017 HPI: A 22-year-old female here with complaints of pain involving the left knee area. The patient states that it has been getting worse over the last hour and a half for so. She underwent surgery to repair a femoropatellar ligament last , this was done at [facility]. She states that she has been on a regional nerve block as well as pain medications and the nerve block has wore off. She has been taking oxycodone as well as Toradol she tells me for pain. Her last dose of these medications was at 10 o' clock this morning, which mean she would be due for her next dose. The patient states that the pain got to the point where she could not bear it. She rates at least at an 8/10. The patient is concerned about her blood clot. She had the same procedure done on her other leg previously and did develop a blood clot that needed to be treated. OBJECTIVE: GENERAL APPEARANCE: The patient is awake and alert. She is uncomfortable. VITAL SIGNS: Reviewed. She is running a low-grade temp of 99.6, blood pressure is good. Pulse is 115. Physical exam, examining the left leg reveals there is a dressing in place. This was removed by myself and nursing staff revealing mild swelling of the injury site. There are multiple small incisions from the surgery. There is no active drainage. She does have a pressure blister on the medial side of the knee that is about 2 cm in diameter. The entire knee and posterior aspect of the knee going down into the proximal calf muscle is tender and painful. Homans sign is positive. LAB AND X-RAY STUDIES: Labs include her CBC which is normal. PT/INR normal. D -dimer is elevated. Comprehensive metabolic panel is unremarkable. D-dimer is 1080. The patient was also given Dilaudid 2 mg subcu, which brought her pain down to a 5/10, and she was now comfortable and has been texting different people. DIAGNOSIS: Postop pain involving the left knee and lower leg with concern about possible deep vein thrombosis. TREATMENT PLAN: The patient will be scheduled for an ultrasound tomorrow. We will cover her with Lovenox. She will get 60 mg here in the emergency room, and I will give her script for 80 mg to take in 12 hours. Nursing staff will reapply the dressing. The patient is to go home and keep her leg elevated and follow up for the ultrasound as scheduled tomorrow. She has also resumed taking her pain medications as directed by the surgeon. NIRALI/CESAR /[id number] MTDD
== END 2017-12-15 16:27 | disposition home or self-care (01) ==
LOC: LB.ED 14:46
DX: G89.18 Other acute postprocedural pain (principal); Z98.890 Other specified postprocedural states; M25.562 Pain in left knee
CPT/HCPCS: 36415; 80053; 85025; 85379; 85610; 96372; 99283-25; J1170; J1650

== ENCOUNTER 2018-04-04 19:35 | Emergency (ER) | payer OTHER, BC, MEDICAID ==
[2018-04-04] MEDS ORDERED: Diphtheria,Pertussis(Acell),Tetanus Vaccine 0.5 ML SDV inactive IM ONE (19:40)
--- NOTE | 2018-04-04 21:31 | ER ---
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 The patient was told she needed to come in and get it checked out since it was done at work. ALLERGIES: SULFA. CURRENT MEDICATIONS: Fluoxetine 80 mg p.o. daily and Augmentin for an ear infection. PHYSICAL EXAMINATION: GENERAL: The patient is alert, oriented, no apparent distress. VITAL SIGNS: Pulse is 103, blood pressure is 146/93, respirations 20, O2 saturation is 99%. The patient is afebrile. Assesment: laceration She has a small superficial about 4 cm scratch on the palmar surface of the left hand. It does not even penetrate the dermis. There is no reason to suture it. Antibiotic ointment and a dressing were applied. The patient was given a Tdap. The patient to return to clinic for any signs of infection. DANILO/CESAR /[id number] MTDMercedes
[2018-04-04 21:51] VITALS: BP 146/93
== END 2018-04-04 19:55 | disposition home or self-care (01) ==
LOC: LB.ED 19:35
DX: S61.412A Laceration without foreign body of left hand, initial encounter (principal); Z23 Encounter for immunization; W26.8XXA Contact with other sharp object(s), not elsewhere classified, initial encounter; Y93.G1 Activity, food preparation and clean up; Z88.2 Allergy status to sulfonamides
CPT/HCPCS: 90471; 90715; 99283-25

== ENCOUNTER 2018-10-04 12:34 | Emergency (ER) | payer BC, MEDICAID ==
--- NOTE | 2018-10-04 12:44 | EDM.PDOC ---
ED HPI GENERAL MEDICAL PROBLEM - General Stated Complaint: ABD PAIN Time Seen by Provider: 10/04/18 12:40 Source of Information: Reports: Patient History Limitations: Reports: No Limitations - History of Present Illness INITIAL COMMENTS - FREE TEXT/NARRATIVE: This is a 23yo F here for left lower abdominal pain that has been present for months but states it is worse today. She states the pain just started getting worse and has fluctuated in the past. Denies fever or chills. Patient states the pain is intolerable. Onset: Sudden Duration: Hour(s):, Getting Worse Location: Reports: Abdomen Quality: Reports: Ache Severity: Severe Improves with: Reports: None Worsens with: Reports: None Associated Symptoms: Reports: No Other Symptoms Left Lower Flank Pain Score (Numeric/FACES): 8 - Related Data Allergies Allergy/AdvReac Type Severity Reaction Status Date / Time adhesive Allergy Intermediate Rash Verified 04/04/18 21:43 coconut oil Allergy Mild Swelling Verified 04/04/18 21:43 kiwi Allergy Mild Swelling Verified 04/04/18 21:43 peanut Allergy Mild Swelling Verified 04/04/18 21:43 pineapple [Pineapple] Allergy Mild Swelling Verified 04/04/18 21:43 Sulfa (Sulfonamide Allergy Hives Verified 04/04/18 21:43 Antibiotics) Home Meds: Home Meds Amoxicillin/Potassium Clav [Augmentin 875-125 Tablet] 1 each PO BID 04/04/18 [ History] FLUoxetine HCl [Fluoxetine HCl] 1 cap PO DAILY 04/04/18 [History] Past Medical History HEENT History: Reports: Impaired Vision, Other (See Below) Other HEENT History: Wears glasses. Cardiovascular History: Reports: None Respiratory History: Reports: None Other Respiratory History: Takes nebs prn Gastrointestinal History: Reports: Other (See Below) Other Gastrointestinal History: Left lowe rabd. pain Genitourinary History: Reports: UTI, Recurrent CLIN NURSE History: Reports: , Other (See Below) Other CLIN NURSE History: ovarian cyst. G1;P1 Musculoskeletal History: Reports: Back Pain, Chronic Other Musculoskeletal History: knee pain Neurological History: Reports: Migraines Psychiatric History: Reports: Anxiety, Depression, Emotional Problems Oncologic (Cancer) History: Reports: None - Infectious Disease History Infectious Disease History: Reports: Chicken Pox - Past Surgical History Female Surgical History: Reports: None Musculoskeletal Surgical History: Reports: Other (See Below) Social & Family History - Family History Family Medical History: Noncontributory - Caffeine Use Caffeine Use: Reports: Energy Drinks, Soda ED ROS GENERAL - Review of Systems Review Of Systems: ROS reveals no pertinent complaints other than HPI. ED EXAM, GI/ABD - Physical Exam Exam: See Below Exam Limited By: No Limitations General Appearance: Alert, WD/WN, Moderate Distress Eyes: Bilateral: EOMI Ears: Normal External Exam Nose: Normal Inspection Throat/Mouth: Normal Inspection Head: Atraumatic, Normocephalic Neck: Normal Inspection Respiratory/Chest: No Respiratory Distress, Lungs Clear, Normal Breath Sounds Cardiovascular: Normal Peripheral Pulses, Regular Rate, Rhythm GI/Abdominal Exam: Tender (left lower abdomen) Back Exam: Normal Inspection Course - Vital Signs Last Recorded V/S: Last Vital Signs Temp 37.5 C 10/04/18 14:39 Pulse 76 10/04/18 14:39 Resp 20 10/04/18 14:39 BP 110/58 L 10/04/18 14:39 Pulse Ox 98 10/04/18 14:39 - Orders/Labs/Meds Labs: Laboratory Tests 10/04/18 10/04/18 10/04/18 Range/Units 12:50 12:50 12:50 WBC 6.1 (4.0-11.0) K/uL RBC 4.82 (3.80-5.80) M/uL Hgb 13.9 (11.5-16.5) g/dL Hct 41.1 (37.0-47.0) % MCV 85 (76-96) fL MCH 28.8 (27.0-32.0) pg MCHC 33.8 (31.0-35.0) g/dL RDW 14.6 (11.0-16.0) % Plt Count 176 (150-500) K/uL MPV 11.7 H (6.0-10.0) fL Neut % (Auto) 54.2 (45.0-70.0) % Lymph % (Auto) 30.2 (20.0-40.0) % [place] % (Auto) 10.3 H (3.0-10.0) % Eos % (Auto) 4.8 (1.0-5.0) % Baso % (Auto) 0.5 (0.0-0.5) % Neut # (Auto) 3.31 (2.00-7.50) K/uL Lymph # (Auto) 1.84 (1.50-4.00) K/uL [place] # (Auto) 0.63 (0.20-0.80) K/uL Eos # (Auto) 0.29 (0.04-0.40) K/uL Baso # (Auto) 0.03 (0.02-0.10) K/uL Sodium 144 (136-145) mmol/L Potassium 4.3 (3.5-5.1) mmol/L Chloride 106 (98-107) mmol/L Carbon Dioxide 26.1 (21.0-32.0) mmol/L Anion Gap 16.2 H (5.0-15.0) mmol/L BUN 10 D (8-26) mg/dL Creatinine 1.33 H D (0.55-1.02) mg/dL Est Cr Clr Drug Dosing TNP Estimated GFR (MDRD) 50 L (>60) MLS/MIN BUN/Creatinine Ratio 7.5 (6-25) Glucose 90 (74-100) mg/dL Lactic Acid 1.44 (0.90-1.70) mmol/L Calcium 9.0 (8.5-10.1) mg/dL Total Bilirubin 1.6 H (0.0-1.0) mg/dL AST 14 L (15-37) U/L ALT 22 (12-78) U/L Alkaline Phosphatase 62 (46-116) U/L Total Protein 7.3 (6.4-8.2) g/dL Albumin 3.7 (3.4-5.0) g/dL Globulin 3.6 (2.2-4.2) g/dL Albumin/Globulin Ratio 1.0 (0.8-2.0) Lipase (73-393) U/L 10/04/18 Range/Units 12:50 WBC (4.0-11.0) K/uL RBC (3.80-5.80) M/uL Hgb (11.5-16.5) g/dL Hct (37.0-47.0) % MCV (76-96) fL MCH (27.0-32.0) pg MCHC (31.0-35.0) g/dL RDW (11.0-16.0) % Plt Count (150-500) K/uL MPV (6.0-10.0) fL Neut % (Auto) (45.0-70.0) % Lymph % (Auto) (20.0-40.0) % [place] % (Auto) (3.0-10.0) % Eos % (Auto) (1.0-5.0) % Baso % (Auto) (0.0-0.5) % Neut # (Auto) (2.00-7.50) K/uL Lymph # (Auto) (1.50-4.00) K/uL [place] # (Auto) (0.20-0.80) K/uL Eos # (Auto) (0.04-0.40) K/uL Baso # (Auto) (0.02-0.10) K/uL Sodium (136-145) mmol/L Potassium (3.5-5.1) mmol/L Chloride (98-107) mmol/L Carbon Dioxide (21.0-32.0) mmol/L Anion Gap (5.0-15.0) mmol/L BUN (8-26) mg/dL Creatinine (0.55-1.02) mg/dL Est Cr Clr Drug Dosing Estimated GFR (MDRD) (>60) MLS/MIN BUN/Creatinine Ratio (6-25) Glucose (74-100) mg/dL Lactic Acid (0.90-1.70) mmol/L Calcium (8.5-10.1) mg/dL Total Bilirubin (0.0-1.0) mg/dL AST (15-37) U/L ALT (12-78) U/L Alkaline Phosphatase (46-116) U/L Total Protein (6.4-8.2) g/dL Albumin (3.4-5.0) g/dL Globulin (2.2-4.2) g/dL Albumin/Globulin Ratio (0.8-2.0) Lipase 121 (73-393) U/L Meds: Medications Discontinued Medications Generic Name Dose Route Start Last Admin Trade Name Freq PRN Reason Stop Dose Admin Hydrocodone Bitart/Acetaminophen 1 tab 10/04/18 13:27 10/04/18 13:31 [place] 325-10 Mg PO 10/04/18 13:28 1 tab ONETIME ONE Administration Hydrocodone Bitart/Acetaminophen Confirm 10/04/18 13:37 10/04/18 13:44 [place] 325-10 Mg Administered 10/04/18 13:38 Not Given Dose 1 tab .ROUTE .STK-MED ONE Morphine Sulfate 2 mg 10/04/18 14:24 10/04/18 14:29 Morphine IVPUSH 10/04/18 14:25 2 mg ONETIME ONE Administration Morphine Sulfate Confirm 10/04/18 14:34 10/04/18 14:32 Morphine Administered 10/04/18 14:35 Not Given Dose 2 mg .ROUTE .STK-MED ONE Morphine Sulfate Confirm 10/04/18 14:57 10/04/18 14:55 Morphine Administered 10/04/18 14:58 Not Given Dose 2 mg .ROUTE .STK-MED ONE Morphine Sulfate 2 mg 10/04/18 14:53 10/04/18 14:55 Morphine IVPUSH 10/04/18 14:54 2 mg ONETIME ONE Administration Ondansetron HCl Confirm 10/04/18 14:58 10/04/18 14:55 Zofran Administered 10/04/18 14:59 Not Given Dose 4 mg .ROUTE .STK-MED ONE Ondansetron HCl 4 mg 10/04/18 14:54 10/04/18 15:02 Zofran IVPUSH 10/04/18 14:55 4 mg ONETIME ONE Administration Departure - Departure Time of Disposition: 15:30 Disposition: Home, Self-Care 01 Condition: Good Clinical Impression: Lower abdominal pain Constipation Qualifiers: Constipation type: unspecified constipation type Qualified Code(s): K59.00 - Constipation, unspecified - Discharge Information Instructions: Ibuprofen tablets and capsules, Acetaminophen tablets or caplets Referrals: PCP,None [Primary Care Provider] - Forms: ED Department Discharge Additional Instructions: Take metamucil and/or a stool softner, the CT does show some constipation. Take the Tramadol only if needed for pain that is not covered tylenol and ibuprofen. Return to the clinic as needed. - Problem List & Annotations (1) Abdominal pain, lower SNOMED Code(s): 44568546 Code(s): R10.30 - LOWER ABDOMINAL PAIN, UNSPECIFIED Status: Acute Priority: High Current Visit: Yes Onset Date: ~12/02/17 Annotation/Comment :: 07/04/17 - Lower abdominal pain, post delivery without any current bleeding. (2) Constipation SNOMED Code(s): 42373322 Code(s): K59.00 - CONSTIPATION, UNSPECIFIED Status: Acute Priority: High Current Visit: Yes Qualifiers: Constipation type: unspecified constipation type Qualified Code(s): K59.00 - Constipation, unspecified - Problem List Review Problem List Initiated/Reviewed/Updated: Yes - Assessment/Plan Plan: Counseled on CT findings including renal findings. Discussed follow up and discussed constipation and management. Discussed further pain control with tramadol as needed only temporarily and f/u in ER or clinic if symptoms persist or worsen. Continue conservative management and supportive care.
[2018-10-04] MEDS ORDERED: Acetaminophen/HYDROcodone 325-10 MG Tab PO ONE (13:27)
[2018-10-04] MEDS ORDERED: Acetaminophen/HYDROcodone 325-10 MG Tab ONE (13:37)
[2018-10-04] MEDS ORDERED: Morphine 2 MG/ML Syringe IVPUSH ONE ×2 (14:24→14:53)
--- NOTE | 2018-10-04 14:24 | CT ---
DATE OF SERVICE: 10/04/18 CLINICAL DATA: Left lower abd pain. UNENHANCED ABDOMEN AND PELVIC CT: Multislice acquisition through the abdomen and pelvis without IV or oral contrast was performed. Comparison is made to a prior exam dated 10/07/17. There are mild atelectatic changes of the dependent portions of both lower lungs. The lung base is otherwise clear. The unenhanced liver appears normal. The gallbladder appears normal. The spleen appears normal. The pancreas appears normal. The right and left adrenals appear normal. The right and left kidneys appear normal. No nephrocalcinosis or nephrolithiasis. No hydronephrosis or hydroureter. The bladder is fluid filled and mildly distended. It is otherwise normal in appearance. The appendix is not visualized. No evidence of appendicitis. There is a moderate amount of gas and stool present throughout the colon. There are small low density foci in the right ovary consistent with ovarian cyst. No free air. No free fluid. No dilated loops of bowel. No adenopathy. No aortic aneurysm. There is an umbilical hernia containing fat. [id number] [facility]
[2018-10-04] MEDS ORDERED: Morphine 2 MG/ML Syringe ONE ×2 (14:34→14:57)
[2018-10-04 14:40] VITALS: BP 110/58
[2018-10-04] MEDS ORDERED: Ondansetron 4 MG/2 ML SDV IVPUSH ONE (14:54)
[2018-10-04] MEDS ORDERED: Ondansetron 4 MG/2 ML SDV ONE (14:58)
== END 2018-10-04 15:35 | disposition home or self-care (01) ==
LOC: LB.ED 12:34
DX: K59.00 Constipation, unspecified (principal); Z88.8 Allergy status to other drugs, medicaments and biological substances; Z79.899 Other long term (current) drug therapy
CPT/HCPCS: 36415; 74176; 80053; 83605; 83690; 85025; 96374; 96375; 99284; A9270; J2270; J2405

== ENCOUNTER 2019-01-12 22:09 | Emergency (ER) | payer BC, MEDICAID ==
--- NOTE | 2019-01-12 23:08 | EDM.PDOC ---
ED HPI GENERAL MEDICAL PROBLEM - General Chief Complaint: Headache Stated Complaint: LETHARGIC/HEADACHE Time Seen by Provider: 01/12/19 22:30 Source of Information: Reports: Patient History Limitations: Reports: No Limitations - History of Present Illness INITIAL COMMENTS - FREE TEXT/NARRATIVE: According to patient she has had severe headache on the right side of the head since today morning, the headache has gradually got worse through the day. Rates her headache at 9/10 in severity. Has been nauseous all day. Today afternoon when patient went to work, she claims she had transient episode of tunnel vision in both eyes and following which she passed out. Her co-worker prevented her from falling and hurting and let her lye down on the ground . Pt claims she had passed out for few minutes. Her syncope was not asso with incontinence of urine or stool. She claims her headache has got worse through the night and hence here. No fever or chills. No vomiting in the ER. Her vitals are stable in the emergency room. Pt has history of migraine and she get Botox injections, her last injection was about a month ago. No weakness, no tingling or numbness in her extremities. Onset: Today Onset Date: 01/12/19 Duration: Getting Worse Location: Reports: Head Quality: Reports: Ache Severity: Severe Improves with: Reports: None Worsens with: Reports: None Associated Symptoms: Reports: Headaches, Nausea/Vomiting. Denies: Confusion, Chest Pain, Cough, Diaphoresis, Fever/Chills, Rash, Seizure, Shortness of Breath , Syncope, Weakness - Related Data Allergies Allergy/AdvReac Type Severity Reaction Status Date / Time adhesive Allergy Intermediate Rash Verified 04/04/18 21:43 coconut oil Allergy Mild Swelling Verified 04/04/18 21:43 kiwi Allergy Mild Swelling Verified 04/04/18 21:43 peanut Allergy Mild Swelling Verified 04/04/18 21:43 pineapple [Pineapple] Allergy Mild Swelling Verified 04/04/18 21:43 Sulfa (Sulfonamide Allergy Hives Verified 04/04/18 21:43 Antibiotics) Home Meds: Home Meds Amoxicillin/Potassium Clav [Augmentin 875-125 Tablet] 1 each PO BID 04/04/18 [ History] FLUoxetine HCl [Fluoxetine HCl] 1 cap PO DAILY 04/04/18 [History] Past Medical History HEENT History: Reports: Impaired Vision, Other (See Below) Other HEENT History: Wears glasses. Cardiovascular History: Reports: None Respiratory History: Reports: None Other Respiratory History: Takes nebs prn Gastrointestinal History: Reports: Other (See Below) Other Gastrointestinal History: Left lowe rabd. 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 G1;P1 Musculoskeletal History: Reports: Back Pain, Chronic Other Musculoskeletal History: knee pain Neurological History: Reports: Migraines Psychiatric History: Reports: Anxiety, Depression, Emotional Problems Oncologic (Cancer) History: Reports: None - Infectious Disease History Infectious Disease History: Reports: Chicken Pox - Past Surgical History Female Surgical History: Reports: None Musculoskeletal Surgical History: Reports: Other (See Below) Social & Family History - Family History Family Medical History: Noncontributory - Caffeine Use Caffeine Use: Reports: Energy Drinks, Soda ED ROS GENERAL - Review of Systems Review Of Systems: See Below Constitutional: Denies: Fever, Malaise, Weakness HEENT: Denies: Ear Pain, Rhinitis, Throat Pain Respiratory: Denies: Cough, Sputum Cardiovascular: Reports: Syncope. Denies: Chest Pain, Lightheadedness GI/Abdominal: Reports: Nausea. Denies: Abdominal Pain, Constipation, Diarrhea, Distension, Vomiting : Denies: Dysuria, Frequency Musculoskeletal: Denies: Joint Pain, Joint Swelling Skin: Denies: Bruising, Pruritis, Rash Neurological: Reports: Headache, Syncope. Denies: Confusion, Dizziness, Numbness, Seizure, Tingling, Weakness ED EXAM, GENERAL - Physical Exam Exam: See Below Exam Limited By: No Limitations General Appearance: Alert, WD/WN, Mild Distress Eye Exam: Bilateral Eye: EOMI, PERRL Ears: Normal External Exam, Normal Canal, Hearing Grossly Normal, Normal TMs Ear Exam: Bilateral Ear: Auricle Normal, Canal Normal, TM normal Nose: Normal Inspection, Normal Mucosa, No Blood Throat/Mouth: Normal Inspection, Normal Lips, Normal Teeth, Normal Gums, Normal Oropharynx, Normal Voice, No Airway Compromise Head: Atraumatic, Normocephalic Neck: Normal Inspection, Supple, Non-Tender, Full Range of Motion Respiratory/Chest: No Respiratory Distress, Lungs Clear, Normal Breath Sounds, No Accessory Muscle Use, Chest Non-Tender Cardiovascular: Normal Peripheral Pulses, Regular Rate, Rhythm, No Edema, No Gallop, No JVD, No Murmur, No Rub GI/Abdominal: Normal Bowel Sounds, Soft, Non-Tender, No Organomegaly, No Distention, No Abnormal Bruit, No Mass Back Exam: Normal Inspection, Full Range of Motion, NT Extremities: Normal Inspection, Normal Range of Motion, Non-Tender, Normal Capillary Refill, No Pedal Edema Neurological: Alert, Oriented, CN II-XII Intact, Normal Cognition, Normal Gait, Normal Reflexes, No Motor/Sensory Deficits Psychiatric: Normal Mood Skin Exam: Warm, Intact Course - Vital Signs Text/Narrative:: Pt appear to have acute migraine attack. Apparently she describes this as the worst headache she has had, and also there is history of loss of consciousness. Hence I did get Ct head done. Also got CBC and BMP. Her Ct head is negative for acute intracranial bleed or subarachnoid bleed. her CBC and BMP are stable. Pt and father reassured that she has acute migraine attack. Pt did received Dilaudid 2mg with 25mg Phenergan IM today. Advised to go home and sleep in a quite dark room, headache should improve with in 2-4 hrs time. Pt advised to followup with her primary care provider and her neurologist if her headache frequency is worsening. - Orders/Labs/Meds Orders: Active Orders 24 hr Category Date Time Status Head wo Cont [CT] Stat Exams 01/12/19 22:57 Taken Labs: Laboratory Tests 01/12/19 01/12/19 Range/Units 11:10 11:10 WBC 7.4 D (4.0-11.0) K/uL RBC 4.88 (3.80-5.80) M/uL Hgb 14.1 (11.5-16.5) g/dL Hct 41.1 (37.0-47.0) % MCV 84 (76-96) fL MCH 28.9 (27.0-32.0) pg MCHC 34.3 (31.0-35.0) g/dL RDW 13.6 (11.0-16.0) % Plt Count 169 (150-500) K/uL MPV 11.6 H (6.0-10.0) fL Neut % (Auto) 46.6 (45.0-70.0) % Lymph % (Auto) 41.9 H (20.0-40.0) % [place] % (Auto) 7.4 (3.0-10.0) % Eos % (Auto) 3.4 (1.0-5.0) % Baso % (Auto) 0.7 H (0.0-0.5) % Neut # (Auto) 3.46 (2.00-7.50) K/uL Lymph # (Auto) 3.11 (1.50-4.00) K/uL [place] # (Auto) 0.55 (0.20-0.80) K/uL Eos # (Auto) 0.25 (0.04-0.40) K/uL Baso # (Auto) 0.05 (0.02-0.10) K/uL Sodium 141 (136-145) mmol/L Potassium 3.8 (3.5-5.1) mmol/L Chloride 105 (98-107) mmol/L Carbon Dioxide 23.4 (21.0-32.0) mmol/L Anion Gap 16.4 H (5.0-15.0) mmol/L BUN 17 D (8-26) mg/dL Creatinine 0.88 D (0.55-1.02) mg/dL Est Cr Clr Drug Dosing TNP Estimated GFR (MDRD) > 60 (>60) MLS/MIN BUN/Creatinine Ratio 19.3 (6-25) Glucose 109 H (74-100) mg/dL Calcium 8.9 (8.5-10.1) mg/dL Meds: Medications Discontinued Medications Generic Name Dose Route Start Last Admin Trade Name Michael PRN Reason Stop Dose Admin Hydromorphone HCl 2 mg 01/12/19 23:30 01/12/19 23:42 Dilaudid IM 01/12/19 23:31 2 mg ONETIME ONE Administration Hydromorphone HCl Confirm 01/12/19 23:45 Dilaudid Administered 01/12/19 23:46 Dose 2 mg .ROUTE .STK-MED ONE Promethazine HCl 25 mg 01/12/19 23:30 01/12/19 23:42 Phenergan IM 01/12/19 23:31 25 mg ONETIME ONE Administration Promethazine HCl Confirm 01/12/19 23:45 Phenergan Administered 01/12/19 23:46 Dose 25 mg .ROUTE .STK-MED ONE Departure - Departure Time of Disposition: 23:50 Disposition: Home, Self-Care 01 Condition: Fair Clinical Impression: Migraine - Discharge Information *PRESCRIPTION DRUG MONITORING PROGRAM REVIEWED*: Not Applicable *COPY OF PRESCRIPTION DRUG MONITORING REPORT IN PATIENT [place]: Not Applicable Forms: ED Department Discharge Additional Instructions: Pt appear to have acute migraine attack. Apparently she describes this as the worst headache she has had, and also there is history of loss of consciousness. Hence I did get Ct head done. Also got CBC and BMP. Her Ct head is negative for acute intracranial bleed or subarachnoid bleed. her CBC and BMP are stable. Pt and father reassured that she has acute migraine attack. Pt did received Dilaudid 2mg with 25mg Phenergan IM today. Advised to go home and sleep in a quite dark room, headache should improve with in 2-4 hrs time. Pt advised to followup with her primary care provider and her neurologist if her headache frequency is worsening. - Problem List & Annotations (1) Migraine SNOMED Code(s): 12453136 Code(s): G43.909 - MIGRAINE, UNSP, NOT INTRACTABLE, WITHOUT STATUS MIGRAINOSUS Status: Acute Current Visit: Yes - Problem List Review Problem List Initiated/Reviewed/Updated: Yes - My Orders Last 24 Hours: My Active Orders 01/12/19 22:57 Head wo Cont [CT] Stat - Assessment/Plan Last 24 Hours: My Active Orders 01/12/19 22:57 Head wo Cont [CT] Stat Assessment:: Migraine attack Plan: Pt appear to have acute migraine attack. Apparently she describes this as the worst headache she has had, and also there is history of loss of consciousness. Hence I did get Ct head done. Also got CBC and BMP. Her Ct head is negative for acute intracranial bleed or subarachnoid bleed. her CBC and BMP are stable. Pt and father reassured that she has acute migraine attack. Pt did received Dilaudid 2mg with 25mg Phenergan IM today. Advised to go home and sleep in a quite dark room, headache should improve with in 2-4 hrs time. Pt advised to followup with her primary care provider and her neurologist if her headache frequency is worsening.
[2019-01-12] MEDS ORDERED: Promethazine 25 MG/ML SDV IM ONE (23:30)
[2019-01-12] MEDS ORDERED: HYDROmorphone 2 MG/ML SDV IM ONE (23:30)
[2019-01-12] MEDS ORDERED: HYDROmorphone 2 MG/ML SDV ONE (23:45)
[2019-01-12] MEDS ORDERED: Promethazine 25 MG/ML SDV ONE (23:45)
[2019-01-13 01:17] VITALS: BP 120/60
--- NOTE | 2019-01-13 03:38 | CT ---
CLINICAL DATA: Severe headache. UNENHANCED BRAIN CT, 12 JANUARY 2019: No masses or mass effect. No intracranial hemorrhage. No evidence of acute or subacute infarct. No osseous abnormalities. IMPRESSION: Normal exam. Job: [id number]
== END 2019-01-12 23:58 | disposition home or self-care (01) ==
LOC: LB.ED 22:09
DX: G43.909 Migraine, unspecified, not intractable, without status migrainosus (principal); F41.9 Anxiety disorder, unspecified; F32.9 Major depressive disorder, single episode, unspecified; Z79.899 Other long term (current) drug therapy; Z91.018 Allergy to other foods; Z91.010 Allergy to peanuts; Z88.2 Allergy status to sulfonamides
CPT/HCPCS: 36415; 70450; 80048; 85025; 96372; 99284; J1170; J2550

== ENCOUNTER 2019-05-13 22:24 | Emergency (ER) | payer BC, MEDICAID ==
[2019-05-13 22:37] VITALS: BP 143/83; PULSE 97
[2019-05-13] MEDS ORDERED: Ketorolac 60 MG/2 ML SDV IM ONE (22:44)
--- NOTE | 2019-05-13 22:56 | EDM.PDOC ---
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 She bent forward to night and felt sharp pain in her lower back, which she claims radiates into her thighs . she claims she is tingling from midthigh all the way into her feet. Rates pain at 10/10. Also has been feeling tingling around the genitals and rectal area. No incontinence of stool or urine. Pt calims she has not walked since the pain started.Pt is anxious and crying out loud. Onset: Today Onset Date: 05/13/19 Onset Time: 20:30 Location: Reports: Back Severity: Severe Improves with: Reports: None Worsens with: Reports: None Associated Symptoms: Denies: Confusion, Chest Pain, Cough, Diaphoresis, Fever/ Chills, Nausea/Vomiting, Rash, Seizure, Shortness of Breath, Syncope, Weakness Lower Back Pain Score (Numeric/FACES): 10 - Related Data Allergies Allergy/AdvReac Type Severity Reaction Status Date / Time adhesive Allergy Intermediate Rash Verified 05/13/19 22:40 coconut oil Allergy Mild Swelling Verified 05/13/19 22:40 kiwi Allergy Mild Swelling Verified 05/13/19 22:40 peanut Allergy Mild Swelling Verified 05/13/19 22:40 pineapple [Pineapple] Allergy Mild Swelling Verified 05/13/19 22:40 morphine Allergy Disorientat Verified 05/13/19 22:40 ion Sulfa (Sulfonamide Allergy Hives Verified 05/13/19 22:40 Antibiotics) Home Meds: Home Meds Loratadine [Claritin] 10 mg PO DAILY 01/13/19 [History] Albuterol [Ventolin HFA] 1 - 2 puff IH Q4HR PRN 05/13/19 [History] Ascorbic Acid [Vitamin C] 500 mg PO DAILY 05/13/19 [History] FLUoxetine HCl [Fluoxetine HCl] 40 cap PO DAILY 05/13/19 [History] Onabotulinumtoxina [Botox] 200 unit IJ ASDIRECTED 05/13/19 [History] medroxyPROGESTERone Acetate [Depo-Provera] 150 mg IM ASDIRECTED 05/13/19 [ History] Past Medical History HEENT History: Reports: Impaired Vision, Sinusitis, Other (See Below) Other HEENT History: Wears glasses. Cardiovascular History: Reports: None Respiratory History: Reports: None Other Respiratory History: Takes nebs prn Gastrointestinal History: Reports: Other (See Below) Other Gastrointestinal History: abdominal pain Genitourinary History: Reports: UTI, Recurrent YACHT HAND History: Reports: , Other (See Below) Other YACHT HAND History: ovarian cyst. G1;P1 Musculoskeletal History: Reports: Back Pain, Chronic, Other (See Below) Other Musculoskeletal History: knee pain Neurological History: Reports: Migraines Psychiatric History: Reports: Anxiety, Depression Oncologic (Cancer) History: Reports: None - Infectious Disease History Infectious Disease History: Reports: Chicken Pox - Past Surgical History HEENT Surgical History: Reports: None GI Surgical History: Reports: Lysis of Adhesions Female Surgical History: Reports: None Neurological Surgical History: Reports: None Musculoskeletal Surgical History: Reports: Arthroscopic Knee, Other (See Below) Other Musculoskeletal Surgeries/Procedures:: ligament repair to bilat knees Social & Family History - Family History Family Medical History: Noncontributory - Tobacco Use Smoking Status *Q: Unknown Ever Smoked - Caffeine Use Caffeine Use: Reports: Energy Drinks, Soda ED ROS GENERAL - Review of Systems Review Of Systems: See Below Constitutional: Denies: Fever, Chills HEENT: Denies: Ear Pain, Rhinitis, Throat Pain Respiratory: Denies: Cough, Sputum Cardiovascular: Denies: Chest Pain, Lightheadedness GI/Abdominal: Denies: Abdominal Pain, Nausea, Vomiting : Denies: Dysuria, Frequency Musculoskeletal: Reports: Back Pain. Denies: Joint Pain, Joint Swelling Skin: Denies: Bruising, Pruritis, Rash Neurological: Reports: Numbness, Tingling, Weakness. Denies: Confusion, Dizziness, Headache, Seizure, Syncope, Tremors, Change in Speech Psychiatric: Reports: Anxiety. Denies: Agitation, Confusion ED EXAM, GENERAL - Physical Exam Exam: See Below Exam Limited By: No Limitations General Appearance: Alert, WD/WN, Other Eye Exam: Bilateral Eye: EOMI, PERRL Ears: Normal External Exam, Normal Canal, Hearing Grossly Normal, Normal TMs Ear Exam: Bilateral Ear: Auricle Normal, Canal Normal, TM normal Nose: Normal Inspection, Normal Mucosa, No Blood Throat/Mouth: Normal Inspection, Normal Lips, Normal Teeth, Normal Gums, Normal Oropharynx, Normal Voice, No Airway Compromise Head: Atraumatic, Normocephalic Neck: Normal Inspection, Supple, Non-Tender, Full Range of Motion Respiratory/Chest: No Respiratory Distress, Lungs Clear, Normal Breath Sounds, No Accessory Muscle Use, Chest Non-Tender Cardiovascular: Normal Peripheral Pulses, Regular Rate, Rhythm, No Edema, No Gallop, No JVD, No Murmur, No Rub Peripheral Pulses: 2+: Radial (L), Radial (R) GI/Abdominal: Normal Bowel Sounds, Soft, Non-Tender, No Organomegaly, No Distention, No Abnormal Bruit, No Mass Back Exam: Normal Inspection, Muscle Spasm (lower lumbar B/L), Paraspinal Tenderness (Lower Lumbar B/L). No: CVA Tenderness (R), CVA Tenderness (L), Vertebral Tenderness Extremities: No: Normal Inspection, Normal Range of Motion Neurological: Alert, Oriented, CN II-XII Intact, Normal Cognition, Normal Gait, Normal Reflexes, No Motor/Sensory Deficits Skin Exam: Warm, Intact Course - Vital Signs Text/Narrative:: Pt apparently was bending forward and felt sharp pain in her lower back. Her clinical exam does show paraspinal muscle tenderness in the lower lumbar region and the SI joints. She can move her legs. Her Babinski's sign is negative. She does have equivocal reflexes in lower extremities. Can flex her hip. I do not see any acute neurological findings. She does c/o tingling in the genital and rectal region she has not had incontinence or urine or stool, also her rectal tone appears normal on exam. I do not think she has Cauda equina syndrome. Her lumbar spine x-ray appears normal.Pt reassured that she has strained her lower back. Pt did receive toradol 60mg IM in the Emergency room. Advised Motrin 800mg to alternate with Tylenol 500mg every 4 hrs. Intermittent heat to the back. Okay to weight bear and walk as tolerated. Her pain might be worse when she wakes up in the morning. Pain should gradually improve over next 3-5 days. Pt advised to followup in clinic for recheck. Last Recorded V/S: Last Vital Signs Temp 99.5 F 05/13/19 22:36 Pulse 97 10/11/19 22:36 Resp 20 05/13/19 22:36 BP 143/83 H 05/13/19 22:36 Pulse Ox 100 05/13/19 22:36 - Orders/Labs/Meds Orders: Active Orders 24 hr Category Date Time Status Lumbar Spine 2 or 3V [CR] Stat Exams 05/13/19 22:45 Taken Meds: Medications Discontinued Medications Generic Name Dose Route Start Last Admin Trade Name Michael PRN Reason Stop Dose Admin Ketorolac Tromethamine 60 mg 05/13/19 22:44 Toradol IM 05/13/19 22:45 ONETIME ONE Departure - Departure Time of Disposition: 23:40 Disposition: Home, Self-Care 01 Condition: Fair Clinical Impression: Acute back pain - Discharge Information *PRESCRIPTION DRUG MONITORING PROGRAM REVIEWED*: Not Applicable *COPY OF PRESCRIPTION DRUG MONITORING REPORT IN PATIENT [facility]: Not Applicable Forms: ED Department Discharge Additional Instructions: Pt apparently was bending forward and felt sharp pain in her lower back. Her clinical exam does show paraspinal muscle tenderness in the lower lumbar region and the SI joints. She can move her legs. Her Babinski's sign is negative. She does have equivocal reflexes in lower extremities. Can flex her hip. I do not see any acute neurological findings. She does c/o tingling in the genital and rectal region she has not had incontinence or urine or stool, also her rectal tone appears normal on exam. I do not think she has Cauda equina syndrome. Her lumbar spine x-ray appears normal.Pt reassured that she has strained her lower back. Pt did receive toradol 60mg IM in the Emergency room. Advised Motrin 800mg to alternate with Tylenol 500mg every 4 hrs. Intermittent heat to the back. Okay to weight bear and walk as tolerated. Her pain might be worse when she wakes up in the morning. Pain should gradually improve over next 3-5 days. Pt advised to followup in clinic for recheck. - Problem List & Annotations (1) Acute back pain SNOMED Code(s): 907565758, 903839730 Code(s): M54.9 - DORSALGIA, UNSPECIFIED Status: Acute - Problem List Review Problem List Initiated/Reviewed/Updated: Yes - My Orders Last 24 Hours: My Active Orders 05/13/19 22:45 Lumbar Spine 2 or 3V [CR] Stat - Assessment/Plan Last 24 Hours: My Active Orders 05/13/19 22:45 Lumbar Spine 2 or 3V [CR] Stat Assessment:: Acute back pain Plan: Pt apparently was bending forward and felt sharp pain in her lower back. Her clinical exam does show paraspinal muscle tenderness in the lower lumbar region and the SI joints. She can move her legs. Her Babinski's sign is negative. She does have equivocal reflexes in lower extremities. Can flex her hip. I do not see any acute neurological findings. She does c/o tingling in the genital and rectal region she has not had incontinence or urine or stool, also her rectal tone appears normal on exam. I do not think she has Cauda equina syndrome. Her lumbar spine x-ray appears normal.Pt reassured that she has strained her lower back. Pt did receive toradol 60mg IM in the Emergency room. Advised Motrin 800mg to alternate with Tylenol 500mg every 4 hrs. Intermittent heat to the back. Okay to weight bear and walk as tolerated. Her pain might be worse when she wakes up in the morning. Pain should gradually improve over next 3-5 days. Pt advised to followup in clinic for recheck.
--- NOTE | 2019-05-14 16:36 | CR ---
CLINICAL DATA: Acute low back pain. LUMBAR SPINE, 13 MAY 2019: No priors. The vertebral bodies are of average height. There is minimal left convexity scoliosis of the lower lumbar spine. No acute fracture or dislocation. There is slight narrowing of the L4-5 disk space. No other significant findings. Job: [id number] MTDD
== END 2019-05-13 23:40 | disposition home or self-care (01) ==
LOC: LB.ED 22:24
DX: M54.5 Low back pain (principal); F32.9 Major depressive disorder, single episode, unspecified; F41.9 Anxiety disorder, unspecified; Z88.2 Allergy status to sulfonamides; Z91.048 Other nonmedicinal substance allergy status; Z88.5 Allergy status to narcotic agent; Z91.010 Allergy to peanuts; Z91.018 Allergy to other foods; Z79.899 Other long term (current) drug therapy
CPT/HCPCS: 72100; 96372; 99283-25; J1885